=== PATIENT | female | born 1985 | race Caucasian/White ===

== ENCOUNTER 2022-12-18 21:26 | Inpatient (IN) | payer OTHER ==
[2022-12-18 22:00] VITALS: BMI 50.1
[2022-12-18] MEDS ORDERED: Tranexamic Acid 1,000 MG/10 ML VIAL IVP PRN (23:08)
[2022-12-18] MEDS ORDERED: Misoprostol 200 MCG TAB PR PRN (23:08)
[2022-12-18] MEDS ORDERED: Ibuprofen 800 MG TAB PO PRN (23:08)
[2022-12-18] MEDS ORDERED: HYDROcodone/Acetaminophen 5/325 mg Tablet PO PRN ×2 (23:08)
[2022-12-18] MEDS ORDERED: Acetaminophen 500 MG TAB PO PRN (23:08)
[2022-12-18] MEDS ORDERED: hydrALAZINE 20 MG/ML VIAL SLOW IVP PRN (23:08)
[2022-12-18] MEDS ORDERED: Carboprost 250 MCG/ML AMP IM PRN (23:08)
[2022-12-18] MEDS ORDERED: Ondansetron PF 4 MG/2 ML Vial IVP PRN (23:08)
[2022-12-18] MEDS ORDERED: Promethazine HCl 25 MG/ML VIAL IM PRN (23:08)
[2022-12-18] MEDS ORDERED: fentaNYL 50 mcg/mL 1 mL Vial SLOW IVP PRN (23:08)
[2022-12-18] MEDS ORDERED: Lidocaine 1% (PF) 30 ML VIAL SC PRN (23:08)
[2022-12-18] MEDS ORDERED: Diphenoxylate HCl/Atropine Tablet PO PRN ×2 (23:08)
[2022-12-18] MEDS ORDERED: Lactated Ringer's 1,000 ML IV SCH (23:15)
[2022-12-18] MEDS ORDERED: Penicillin G Potassium 5 MILL.UNITS in Sodium Chloride 0.9% 100 ML IVPB SCH (23:15)
[2022-12-18] MEDS ORDERED: Promethazine HCl 25 MG/ML VIAL IVPB PRN (23:18)
[2022-12-19 00:50] LABS: Hematocrit 37.7 % (34.9-44.5); Hemoglobin 12.2 g/dL (12.0-15.5); Mean Corpuscular HGB CONC 32.4 g/dL (32.0-36.0); Mean Corpuscular Volume 83.4 fl (81.6-98.3); Mean Platelet Volume 10.7 fl (7.4-10.4); Platelet Count 286 10x3/uL (150-450); RBC Distribution Width 15.6 % (11.5-14.5); Red Blood Cell (RBC) Count 4.52 10x6/uL (3.90-5.03); White Blood Cell (WBC) Count 11.3 10x3/uL (3.5-10.5)
[2022-12-19 00:57] LABS: ALT (SGPT) 26 U/L (8-55); AST (SGOT) 20 U/L (5-34); Albumin 3.4 g/dL (3.5-5.0); Alkaline Phosphatase 137 U/L (40-110); Anion Gap 18 mmol/L (10-20); BUN (Urea Nitrogen) 9 mg/dL (7.0-18.7); Bilirubin, Total 0.4 mg/dL (0.2-1.2); Calc. Creatinine Clearance 253 mL/min (70-130); Calcium 9.8 mg/dL (7.8-10.44); Carbon Dioxide 19 mmol/L (22-29); Chloride 104 mmol/L (98-107); Estimated GFR 110; Globulin 3.4 g/dL (2.4-3.5); Glucose 88 mg/dL (70-105); Potassium 3.9 mmol/L (3.5-5.1); Protein, Total 6.8 g/dL (6.0-8.3); Sodium 137 mmol/L (136-145)
[2022-12-19 03:58] LABS: HBSAg Index 0.15 S/CO (0-0.99); Hep B Surf Ag - L&D Non-Reactive S/CO (NonReactive); Syphilis Antibody Nonreactive (Nonreactive); Syphilis Antibody Index 0.06 S/CO (<1.00 Non-Reactive)
[2022-12-19] MEDS: Penicillin G 2.5 MILL.units 2.5 MILL.UNITS in Premix Bag 1 BAG IVPB SCH ×3 (05:34→18:52)
[2022-12-19] MEDS ORDERED: fentaNYL/Ropivacaine Epidural 100 ML ONE (09:07)
[2022-12-19] MEDS ORDERED: Promethazine HCl 25 MG/ML VIAL IM PRN ×2 (09:25→17:41)
[2022-12-19] MEDS ORDERED: Naloxone HCl 0.4 mg/ml Vial IVP PRN ×2 (09:25)
[2022-12-19] MEDS ORDERED: Lactated Ringer's 500 ML IV PRN (09:25)
[2022-12-19] MEDS ORDERED: Moisturizing Cream (Eucerin) 113 GM JAR TOP PRN (09:25)
[2022-12-19] MEDS ORDERED: ePHEDrine Sulfate 50 MG/10 ML VIAL SLOW IVP PRN (09:25)
[2022-12-19] MEDS ORDERED: Ondansetron PF 4 MG/2 ML Vial IVP PRN ×2 (09:25→17:41)
[2022-12-19] MEDS ORDERED: Acetaminophen 325 MG TAB PO PRN (09:25)
[2022-12-19] MEDS ORDERED: diphenhydrAMINE 50 MG/ML VIAL IVP PRN (09:25)
[2022-12-19] MEDS ORDERED: Communication Order-Pharmacy FS SCH (09:30)
[2022-12-19] MEDS ORDERED: fentaNYL 2 mcg/Ropivacaine 0.2% Epidural 100 ML CADD EPIDURAL SCH (09:30)
[2022-12-19] MEDS: Oxytocin 30 units/NS 500 ML 500 ML IV SCH ×2 (11:25→15:14)
[2022-12-19 14:36] LABS: pH (Cord, venous) 7.334 (7.250-7.350)
[2022-12-19] MEDS ORDERED: Diphenoxylate HCl/Atropine Tablet PO SCH (16:45)
[2022-12-19] MEDS ORDERED: Benzocaine-Menthol 82.5 ML CAN TOP PRN (17:41)
[2022-12-19] MEDS ORDERED: hydrALAZINE 20 MG/ML VIAL SLOW IVP PRN (17:41)
[2022-12-19] MEDS ORDERED: diphenhydrAMINE 25 MG CAP PO PRN (17:41)
[2022-12-19] MEDS ORDERED: Lanolin Ointment 7 GM TUBE TOP PRN (17:41)
[2022-12-19] MEDS ORDERED: Boostrix 0.5 ML (Tdap) VIAL (>/=7 yrs of age) IM ONE (17:41)
[2022-12-19] MEDS ORDERED: Bisacodyl 10 MG SUPP PR PRN (17:41)
[2022-12-19] MEDS ORDERED: Milk Of Magnesia 30 ML UDCUP PO PRN (17:41)
[2022-12-19] MEDS ORDERED: HYDROcodone/Acetaminophen 5/325 mg Tablet PO PRN ×2 (17:41)
[2022-12-19] MEDS ORDERED: Preparation H Ointment 28 GM TUBE PR PRN (17:41)
[2022-12-19] MEDS ORDERED: Ferrous Sulfate 325 MG TAB PO SCH (18:00)
[2022-12-19] MEDS: Ibuprofen 800 MG TAB PO SCH (19:41)
[2022-12-19] MEDS: Docusate 100 MG CAP PO SCH (20:48)
[2022-12-20] MEDS: Ibuprofen 800 MG TAB PO SCH ×3 (04:44→21:41)
[2022-12-20] MEDS: Ferrous Sulfate 325 MG TAB PO SCH ×2 (08:53→14:34)
[2022-12-20] MEDS: Docusate 100 MG CAP PO SCH ×2 (09:36→21:41)
[2022-12-20] MEDS: Prenatal Vitamin 1 TAB PO SCH (09:36)
[2022-12-21] MEDS: Ibuprofen 800 MG TAB PO SCH ×2 (05:08→13:25)
[2022-12-21 06:48] VITALS: TEMP 98.1
[2022-12-21] MEDS: Ferrous Sulfate 325 MG TAB PO SCH (07:25)
[2022-12-21 07:41] VITALS: BP 125/67
[2022-12-21] MEDS: Docusate 100 MG CAP PO SCH (08:52)
[2022-12-21] MEDS: Prenatal Vitamin 1 TAB PO SCH (08:52)
== END 2022-12-21 14:15 | disposition home or self-care (01) | DRG 807 ==
LOC: CSHLD/OP 21:26 → CSHLD 23:57 → CSHPP 12-19 17:30
PROVIDERS: ADMIT Student in an Organized Health Care Education/Training Program; ATTEND Student in an Organized Health Care Education/Training Program
PROC: 10E0XZZ Delivery of Products of Conception, External Approach (ICD-10-PCS; principal; 2022-12-19)
PROC: 0HQ9XZZ Repair Perineum Skin, External Approach (ICD-10-PCS; 2022-12-19)
DX: O34.211 Maternal care for low transverse scar from previous cesarean delivery (principal); Z37.0 Single live birth; Z3A.38 38 weeks gestation of pregnancy; O70.0 First degree perineal laceration during delivery
CPT/HCPCS: 36415; 51702; 80053; 82570; 82805; 84156; 85027; 86780; 86850; 86900; 86901; 87340; 99285; J2540; J2550; J2590; J3490